=== PATIENT | male | born 1985 | race Caucasian/White ===

== ENCOUNTER 2021-03-06 18:38 | Emergency (ER) | payer OTHER ==
[2021-03-06] MEDS ORDERED: Diphtheria,Pertussis(Acell),Tetanus Vaccine 0.5 ML Syringe IM ONE (19:18)
[2021-03-06] MEDS ORDERED: Lidocaine 1% 10 ML MDV INJECT ONE (19:18)
== END 2021-03-06 20:20 | disposition home or self-care (01) ==
LOC: JD.ED 18:38
DX: S61.012A Laceration without foreign body of left thumb without damage to nail, initial encounter (principal); Z23 Encounter for immunization; W26.0XXA Contact with knife, initial encounter; Y92.89 Other specified places as the place of occurrence of the external cause; Y99.0 Civilian activity done for income or pay
CPT/HCPCS: 12002; 90471; 90715; 99282-25; 99283